=== PATIENT | male | born 1995 | race Caucasian/White ===

== ENCOUNTER 2022-01-16 17:28 | Emergency (ER) | payer BC, SELFPAY ==
[2022-01-16 17:35] VITALS: BP 113/74; PULSE 76; RESP 18; TEMP 36.6; O2SAT 95; BMI 31.9
--- NOTE | 2022-01-16 19:47 | ED.ANIMALBIT ---
HPI - Animal Bite General Chief Complaint: Animal Bite <BERRY Willingham Last Filed: 01/16/22 20:49> Stated Complaint: dog bite on lip <BERRY Willingham Last Filed: 01/16/22 20:49> Time Seen by Provider: 01/16/22 19:47 <BERRY Willingham Last Filed: 01/16/22 20:49> Source: patient <BERRY Willingham Last Filed: 01/16/22 20:49> Mode of arrival: ambulatory <BERRY Willingham Last Filed: 01/16/22 20:49> History of Present Illness HPI narrative: 26-year-old male with no significant past medical history presenting to the ED complaining of multiple lacerations to upper lip S/P being bit by his dog around 17:00. Patient admits dog's vaccinations are up-to-date. Patient is unsure about his tetanus vaccination. Denies fall to ground/head trauma, LOC, injury to other area <BERRY Willingham Last Filed: 01/16/22 20:49> MD complaint: animal bite <BERRY Willingham Last Filed: 01/16/22 20:49> Onset (ago): hour(s) <BERRY Willingham Last Filed: 01/16/22 20:49> Animal: dog <BERRY Willingham Last Filed: 01/16/22 20:49> Description of animal: household pet <BERRY Willingham Last Filed: 01/16/22 20:49> Related Data Home Medications: Previous Rx's Medication Instructions Recorded amoxicillin 875 mg-potassium 1 tab PO BID 7 days #14 tabs 01/16/22 clavulanate 125 mg tablet <BERRY Willingham Last Filed: 01/16/22 20:49> Allergies/Adverse Reactions: Allergies Allergy/AdvReac Type Severity Reaction Status Date / Time cefprozil [From Cefzil] Allergy Hives Verified 01/16/22 17:37 <BERRY Willingham Last Filed: 01/16/22 20:49> Review of Systems Review of Systems: Constitutional: No Weight loss, No Fever, No Chills ENT/Mouth: No Ear Pain, No Nasal Congestion, No Hoarseness, No sore throat, No Rhinorrhea, No Swallowing Difficulty Cardiovascular: No Chest Pain, No SOB Respiratory: No Cough, No Sputum Gastrointestinal: No Nausea, No Vomiting, No Diarrhea, No Constipation, No Abdominal pain Genitourinary: No Dysuria, No Urinary Frequency, No Hematuria, No Flank Pain Musculoskeletal: No joint pain, No Myalgias, No Joint Swelling Skin: + Skin Lesions, No rash Neuro: No Weakness, No Numbness, No Paresthesias <BERRY Willingham - Last Filed: 01/16/22 20:49> Yes all other systems are reviewed and are negative <BERRY Willingham Last Filed: 01/16/22 20:49> Constitutional: Constitutional: Reports as per HPI <BERRY Willingham Last Filed: 01/16/22 20:49> [facility] Past Medical History Attestation statement: The following information was validated with the patient. <BERRY Willingham Last Filed: 01/16/22 20:49> Social History Social History: Social History Advance Directives: No Advance Directives Information Provided: No <BERRY Willingham Last Filed: 01/16/22 20:49> Physical Exam ED Vital Signs: Vital Signs - 24 hr 01/16/22 17:35 Temperature 97.8 F Pulse Rate 76 Respiratory Rate 18 Blood Pressure 113/74 Pulse Oximetry 95 Oxygen Delivery Method Room Air BMI result Body Mass Index 31.9 <BERRY Willingham Last Filed: 01/16/22 20:49> Vital Signs - 24 hr 01/16/22 17:35 Temperature 97.8 F Pulse Rate 76 Respiratory Rate 18 Blood Pressure 113/74 Pulse Oximetry 95 Oxygen Delivery Method Room Air BMI result Body Mass Index 31.9 <William To MD - Last Filed: 01/16/22 20:37> Const General: cooperative, healthy appearing and no acute distress <BERRY Willingham Last Filed: 01/16/22 20:49> Orientation/consciousness: patient oriented x3 <BERRY Willingham Last Filed: 01/16/22 20:49> Limitations: no limitations <BERRY Willingham Last Filed: 01/16/22 20:49> HENMT Other: Two 1 cm deep lacerations noted to upper lip on both sides of the philtrum through the vermilion border. not through and through. No evidence of dental trauma or tenderness. No loose teeth. <BERRY Willingham - Last Filed: 01/16/22 20:49> Head: Yes normal to inspection and Yes atraumatic <BERRY Willingham - Last Filed: 01/16/22 20:49> Ears: hearing grossly normal bilaterally <BERRY Willingham - Last Filed: 01/16/22 20:49> General nose exam: Normal external nose present <BERRY Willingham - Last Filed: 01/16/22 20:49> Mouth: Normal oral and palatal mucosa present <BERRY Willingham - Last Filed: 01/16/22 20:49> Throat: Yes posterior oropharynx normal, Yes tonsils normal and Yes uvula midline <BERRY Willingham - Last Filed: 01/16/22 20:49> Eyes General: appearance normal, both eyes and all related structures <BERRY Willingham - Last Filed: 01/16/22 20:49> EOM: EOMs intact bilaterally <BERRY Willingham - Last Filed: 01/16/22 20:49> Neck Neck: Yes normal visual inspection and Yes no meningeal signs <BERRY Willingham - Last Filed: 01/16/22 20:49> Resp Effort & Inspection: normal respiratory effort, no respiratory distress and no stridor <BERRY Willingham - Last Filed: 01/16/22 20:49> Auscultation: clear to auscultation bilaterally <BERRY Willingham - Last Filed: 01/16/22 20:49> Cardio Rate: regular rate <BERRY Willingham - Last Filed: 01/16/22 20:49> Heart sounds: S1 normal heart sound present and S2 normal heart sound present <BERRY Willingham - Last Filed: 01/16/22 20:49> GI Inspection: Yes normal to inspection <BERRY Willingham - Last Filed: 01/16/22 20:49> Palpation (GI): Soft to palpation, nontender, no guarding and not rigid <BERRY Willingham - Last Filed: 01/16/22 20:49> General: Yes no CVA tenderness <BERRY Willingham - Last Filed: 01/16/22 20:49> Back/Spine/Pelvis Back: no CVA tenderness <BERRY Willingham - Last Filed: 01/16/22 20:49> Skin Rashes: no rashes <BERRY Willingham - Last Filed: 01/16/22 20:49> Neuro General: patient oriented x3, tone normal and no meningeal signs <BERRY Willingham - Last Filed: 01/16/22 20:49> Gait exam (Neuro): Normal gait present <BERRY Willingham - Last Filed: 01/16/22 20:49> Extrem General: Yes normal to inspection <BERRY Willingham - Last Filed: 01/16/22 20:49> Course Reevaluation(s) Reevaluation #1: Kaylee border well approximated will dc on augmentin <William To MD - Last Filed: 01/16/22 20:37> Time: 20:37 <William To MD - Last Filed: 01/16/22 20:37> MDM - Animal Bite MDM Narrative Medical decision making narrative: 26-year-old male with no significant past medical history presenting to the ED complaining of multiple lacerations to upper lip S/P being bit by his dog around 17:00. On exam vital signs stable, NAD, physical exam as above with 2 lacerations to upper lip through the vermilion border. Will update patient's tetanus, give p.o. Augmentin, and repair lacerations. <BERRY Willingham - Last Filed: 01/16/22 20:49> Differential Diagnosis Differential diagnosis: Likely bite by animal and dog bite <BERRY Willingham - Last Filed: 01/16/22 20:49> Medical Records Attestation: I reviewed the patient's medical records. <BERRY Willingham - Last Filed: 01/16/22 20:49> Lab Data Attestation: I reviewed the patient's lab results. <BERRY Willingham - Last Filed: 01/16/22 20:49> Procedures Laceration Laceration 1: Site: lip <BERRY Willingham - Last Filed: 01/16/22 20:49> Side (If applicable): left <Camila Murillo PA - Last Filed: 01/16/22 20:49> Size (cm): 1 <BERRY Willingham - Last Filed: 01/16/22 20:49> Description: linear <BERRY Willingham - Last Filed: 01/16/22 20:49> Depth: simple, single layer <BERRY Willingham - Last Filed: 01/16/22 20:49> Local Anesthetic: lidocaine 1% <Camila Murillo PA - Last Filed: 01/16/22 20:49> Amount of anesthesia used (mL): 1 <BERRY Willingham - Last Filed: 01/16/22 20:49> Pre-repair: wound explored <Camila Murillo PA - Last Filed: 01/16/22 20:49> Skin layer closed with: nylon <Camila Murillo PA - Last Filed: 01/16/22 20:49> Size (cm): 6-0 <Camila Murillo PA - Last Filed: 01/16/22 20:49> Number of sutures: 4 <BERRY Willingham - Last Filed: 01/16/22 20:49> Technique: simple, interrupted <Camila Murillo PA - Last Filed: 01/16/22 20:49> Laceration 2: Site: lip <Camila Murillo PA - Last Filed: 01/16/22 20:49> Side (If applicable): right <BERRY Willingham - Last Filed: 01/16/22 20:49> Size (cm): 1 <Camila Murillo PA - Last Filed: 01/16/22 20:49> Description: linear and irregular <BERRY Willingham - Last Filed: 01/16/22 20:49> Depth: simple, single layer <BERRY Willingham Last Filed: 01/16/22 20:49> Local Anesthetic: lidocaine 1% <BERRY Willingham Last Filed: 01/16/22 20:49> Amount of anesthesia used (mL): 2 <BERRY Willingham Last Filed: 01/16/22 20:49> Pre-repair: wound explored <BERRY Willingham Last Filed: 01/16/22 20:49> Skin layer closed with: nylon <BERRY Willingham Last Filed: 01/16/22 20:49> Size (cm): 6-0 <BERRY Willingham Last Filed: 01/16/22 20:49> Number of sutures: 6 <BERRY Willingham Last Filed: 01/16/22 20:49> Technique: simple, interrupted <BERRY Willingham Last Filed: 01/16/22 20:49> Discharge Plan Discharge Clinical Impression: Dog bite, Laceration of lip <BERRY Willingham Last Filed: 01/16/22 20:49> Patient Disposition: Home, Self-Care <BERRY Willingham Last Filed: 01/16/22 20:49> Instructions: Animal Bite (ED), Facial Laceration (ED) <BERRY Willingham Last Filed: 01/16/22 20:49> Additional Instructions: PLEASE RETURN TO ANY EMERGENCY DEPARTMENT OR URGENT CARE IN 5 DAYS FOR SUTURE REMOVAL you need to take Augmentin which is an antibiotic as prescribed. Keep wounds clean, apply bacitracin / Neosporin or Vaseline. Once sutures come out apply anti scar cream. Avoid the sun. wear lots of sun block if area begins to look infected, is red, there is drainage, increasing swelling, pus or fever return to the emergency department your tetanus was updated today <BERRY Willingham Last Filed: 01/16/22 20:49> Prescriptions: New amoxicillin-pot clavulanate 875-125 mg tablet 1 tab PO BID 7 Days Qty: 14 0RF <BERRY Willingham Last Filed: 01/16/22 20:49> Referrals: Louie Jeronimo MD [Primary Care Provider] - 5 days ( for suture removal) William To MD [Emergency Provider] - 5 days ( for suture removal) <BERRY Willingham - Last Filed: 01/16/22 20:49>
[2022-01-16] MEDS: Amoxicillin/Potassium Clav 875 MG TABLET PO (19:57)
[2022-01-16] MEDS: Lidocaine HCl 1 % MPF 5 ML VIAL SUBCUT (19:58)
[2022-01-16] MEDS: Diphth,Pertus(ACell),Tet Adult 0.5 ML SYRINGE IM (20:43)
== END 2022-01-16 21:04 | disposition home or self-care (01) ==
PROVIDERS: Emergency Provider Emergency Medicine; PCP Internal Medicine
DX: S01.551A Open bite of lip, initial encounter (principal); W54.0XXA Bitten by dog, initial encounter; Y93.9 Activity, unspecified; Y92.009 Unspecified place in unspecified non-institutional (private) residence as the place of occurrence of the external cause; Y99.9 Unspecified external cause status; Z79.899 Other long term (current) drug therapy
CPT/HCPCS: 12014; 90471; 90715; 99282; 99284